=== PATIENT | female | born 1960 | race Caucasian/White ===

== ENCOUNTER 2019-08-29 12:54 | Emergency (ER) | payer BC, MEDICARE ==
[~2019-08-29] VITALS: Ht 167.6 cm; Wt 77.1 kg
--- OUTSIDE RECORDS SUMMARY | 2019-08-29 13:18 | XMS REPORT ---
[facility] Address Unknown Phone Unavailable Care Team Providers Care Support Associate Name Role Phone Unavailable Unavailable Payers Payer Name Policy Type Policy Number Effective Date Expiration Date Problems This patient has no known problems. Allergies, Adverse Reactions, Alerts Allergy Name Allergy Type Status Severity Reaction(s) Onset Date Inactive Date Treating Clinician Comments codeine DA Active DC 2018-07-12 00:00:00 hydromorphone DA Active DC 2018-07-12 00:00:00 Sulfa (Sulfonamide Antibiotics) DA Active DC 2018-07-12 00:00:00 vancomycin DA Active DC 2018-07-12 00:00:00 morphine DA Active [place] 2016-04-14 00:00:00 codeine DA Active [place] 2016-04-14 00:00:00 acetaminophen DA Active [place] 2016-04-14 00:00:00 sulfamethoxazole DA Active [place] 2016-04-14 00:00:00 hydromorphone DA Active 2016-04-14 00:00:00 ACETAMMINOPHEN/CODEINE DA Active U 2007-03-01 00:00:00 CODEINE DA Active U 2007-03-01 00:00:00 No Known Contrast Allergies DA Active U 2007-03-01 00:00:00 No Known Food Allergies DA Active U 2007-03-01 00:00:00 No Known Other Allergies DA Active U 2007-03-01 00:00:00 SULFA DRUGS DA Active U 2007-03-01 00:00:00 Medications This patient has no known medications. Encounters Start Date/Time End Date/Time Encounter Type Admission Type Attending Clinicians Care Facility Care Department Encounter ID 2019-03-01 10:11:45 Outpatient [facility] [id number] 2019-01-03 16:21:45 Outpatient [facility] [id number] 2019-08-13 05:26:00 2019-08-13 05:26:00 Outpatient [facility] [id number] 2019-02-08 08:20:00 2019-02-08 08:20:00 Outpatient [facility] [id number] 2019-01-30 19:06:00 2019-01-30 19:06:00 Emergency E [facility] [id number] 2019-01-01 11:49:00 2019-01-01 11:49:00 Outpatient [facility] [id number] Results Test Description Test Time Test Comments Text Results Atomic Results Result Comments URINALYSIS COMPLETE 2019-03-17 14:37:00 UA COLOR (test code=COLU) DARK YELLOW YELLOW UA APPEARANCE (test code=APPU) SLIGHTLY HAZY CLEAR UA GLUCOSE DIPSTICK (test code=DGLUU) norm mg/dL NEGATIVE UA BILIRUBIN DIPSTICK (test code=BILU) NEGATIVE mg/dL NEGATIVE UA KETONE DIPSTICK (test code=KETU) neg mg/dL NEGATIVE UA SPECIFIC GRAVITY (test code=SGU) 1.005 1.001-1.035 UA BLOOD DIPSTICK (test code=PETRA) 10 (Trace) Thierry/uL NEGATIVE UA PH DIPSTICK (test code=AZAR) 6.5 5.0-8.0 UA PROTEIN DIPSTICK (test code=PROU) 30 (1+) mg/dL Neg-15 UA UROBILINIOGEN DIPSTICK (test code=URO) 1 mg/dL 0.0-0.2 UA NITRITE DIPSTICK (test code=DALLAS) NEGATIVE NEGATIVE UA LEUKOCYTE ESTERASE DIPSTICK (test code=LEUU) 25 Evans/uL (Trace) uL NEGATIVE UA WBC (test code=WBCU) 0-5 per HPF 0-5 UA RBC (test code=RBCU) 0-2 per HPF 0-5 UA EPITHELIAL CELLS (test code=EPIU) Rare (0-1/hpf) per HPF Few UA BACTERIA (test code=BACU) FEW per HPF NONE Urine Source? Clean CatchURINALYSIS [id number] 14:32:00* Test Item Value Reference Range Comments UA COLOR (test code=COLU) DARK YELLOW YELLOW UA APPEARANCE (test code=APPU) SLIGHTLY HAZY CLEAR UA GLUCOSE DIPSTICK (test code=DGLUU) norm mg/dL NEGATIVE UA BILIRUBIN DIPSTICK (test code=BILU) NEGATIVE mg/dL NEGATIVE UA KETONE DIPSTICK (test code=KETU) neg mg/dL NEGATIVE UA SPECIFIC GRAVITY (test code=SGU) 1.005 1.001-1.035 UA BLOOD DIPSTICK (test code=PETRA) 10 (Trace) Thierry/uL NEGATIVE UA PH DIPSTICK (test code=AZAR) 6.5 5.0-8.0 UA PROTEIN DIPSTICK (test code=PROU) 30 (1+) mg/dL Neg-15 UA UROBILINIOGEN DIPSTICK (test code=URO) 1 mg/dL 0.0-0.2 UA NITRITE DIPSTICK (test code=DALLAS) NEGATIVE NEGATIVE UA LEUKOCYTE ESTERASE DIPSTICK (test code=LEUU) 25 Evans/uL (Trace) uL NEGATIVE UA WBC (test code=WBCU) per HPF 0-5 UA RBC (test code=RBCU) per HPF 0-5 UA EPITHELIAL CELLS (test code=EPIU) per HPF Few UA BACTERIA (test code=BACU) per HPF NONE Urine Source? Clean Catch- CT ABD PELVIS [id number] 13:49:00 Name: KESHAV MUSTAFA [facility] : 1960 Age/S: 58 / F [address] [facility] Unit #: [id number] Loc: [place], [place] [address] Phys: Abram Herrera MD Acct: [id number] Di s Date: Status: REG ER PHONE #: Exam Date: 03/17/2019 1882 FAX #: [phone] Reason: RIGHT GROIN PAIN RADIATING TO RIGHT THIGH EXAMS: CPT CODE: [id number] CT ABD PELVIS W/CONT 00955 HISTORY: RIGHT GROIN PA IN RADIATING TO RIGHT THIGH TECHNIQUE: Immediate and delayed [address] images were obtained through the abdomen and pelvis after IV adm inistration of 100 mL of Isovue-370 contrast. Sagittal and coronal reforma tted images were generated. Automated exposure control for dose reduction. COMPARISON: 07/13/15 FINDINGS: Lung bases are clear. Normal heart size. Coronary artery calcification. Calcified granulomas of the liver and spleen. Gallbladder, pancreas, adrenal glands, and kidneys are unremarkable. Limited evaluation the GI tract without oral contrast. Stomach, small bowel, appendix are un remarkable. Mild distal colon diverticulosis. No free air or free fluid. No lymphadenopathy. Aortoiliac atherosclerotic vascular calcificati on without aneurysm. Urinary bladder is unremarkable. Hysterectomy . Pelvic phleboliths. No pelvic free fluid. Upper lumbar dex troscoliosis and lower lumbar levoscoliosis. L4-L5 posterolateral instrume nted fusion with posterior decompression. Degenerative changes of the spin e, sacroiliac joints, and hips. IMPRESSION: No acute intra-abdominal process. Electro nically Signed by Kristy Carrasquillo D.O. on 03/17/2019 at 9903 R eported and signed by: Kristy Carrasquillo D.O. PAGE 1 Sig arminda Report (CONTINUED) Name: KESHAV MUSTAFA [facility] : 1960 Age/S: 58 / F 58 [address] [facility] Unit #: [id number] Loc: [place] [address] Phys: Marquis Herrera MD Acct: [id number] Dis Date: Status: REG ER PHONE #: [phone] Exam Date: 03/17/2019 1336 FAX #: [phone] Reason: RIGHT GROIN PAIN RADI ATING TO RIGHT THIGH EXAMS: CPT CODE: [id number] CT ABD PELVIS W/CONT 93476 <Continued> CC: Jeff Nguyen MD; Marquis Herrera MD Technologist:[place]ore [place] CTDI: DLP: Trnscb Date/Time: 03/17/2019 (9510) [email or web address] Orig Print D/T: S: 03/17/2019 (0513) PAGE 2 Signed Report PROTHROMBIN [id number] 13:41:00* Test Item Value Reference Range Comments PROTHROMBIN TIME PATIENT (test code=PTP) 10.3 seconds 9.0-13.0 INTERNATIONAL NORMAL RATIO (test code=INR) 1.0 0.8-1.2 The therapeutic range for oral anticoagulant therapy formost indications is an international normalized ratio (INR)of between 2.0 and 3.0. The recommended therapeutic INRrange for various clinical situations is listed below: Clinical Situation INR range Pulmonary e mbolism treatment (2.0-3.0)Venous thrombosis treatmentVenous thrombosis prophylaxis (high risk surgery)Prevention of systemic embolism from: Acute myocardial infarction Valvular heart disease Atrial fibrillation Mechanical prosthetic heart valves (2.5-3.5) IS PATIENT ON ANTICOAGULANTS? NTHROMBOPLASTIN TIME [id number] 13:41:00* Test Item Value Reference Range Comments THROMBOPLASTIN TIME PARTIAL (test code=PTT) 25.2 seconds 25.5-34.3 Therapeutic Range for patients on Heparin Therapy is 2 to2.5 times their baseline PTT level. IS PATIENT ON ANTICOAGULANTS? NBASIC METABOLIC [id number] 12:34:00* Test Item Value Reference Range Comments SODIUM (test code=NA) 133 mmol/L 136-145 POTASSIUM (test code=K) 4.0 mmol/L 3.5-5.1 CHLORIDE (test code=CL) 97 mmol/L 101-109 CARBON DIOXIDE (test code=CO2) 29.2 mmol/L 21-32 ANION GAP (test code=GAP) 11 mmol/L 10-20 GLUCOSE (test code=GLU) 106 mg/dL 74-106 BLOOD UREA NITROGEN (test code=BUN) 9 mg/dL 3-21 GLOMERULAR FILTRATION RATE (test code=GFR) > 60 mL/min >=60 Estimated GFR by using Modified MDRD formula.Chronic kidney disease is defined as either kidney damageor GFR <60 mL/min/1.73 m2 for >3 months. CREATININE (test code=CREAT) 0.70 mg/dL 0.55-1.3 BUN/CREATININE RATIO (test code=BUN/CREA) 12.9 10-20 CALCIUM (test code=CA) 8.6 mg/dL 8.4-10.2 HEPATIC FUNCTION [id number] 12:34:00* Test Item Value Reference Range Comments TOTAL PROTEIN (test code=PROT) 6.9 g/dL 6.5-8.4 ALBUMIN (test code=ALB) 3.6 g/dL 3.4-4.8 GLOBULIN (test code=GLOB) 3.3 G/DL 1-10 ALBUMIN/GLOBULIN RATIO (test code=A/G) 1.09 RATIO 0.75-1.50 BILIRUBIN TOTAL (test code=BILT) 0.70 mg/dL 0.0-1.0 BILIRUBIN DIRECT (test code=BILD) 0.10 mg/dL 0.0-0.30 SGOT/AST (test code=AST) 14 U/L 6-32 SGPT/ALT (test code=ALT) 18 U/L 12-78 Note: Change in REFERENCE RANGE due to new reagent method. ALKALINE PHOSPHATASE TOTAL (test code=ALKP) 105 U/L 38-126 [id number] 12:34:00* Test Item Value Reference Range Comments TROPONIN-I (test code=TROPI) <0.015 ng/mL 0.00-0.056 [id number] 12:29:00* Test Item Value Reference Range Comments D-DIMER (test code=DDIMER) < 100 ng/ml < 600 CBC W/O [id number] 12:11:00* Test Item Value Reference Range Comments WHITE BLOOD CELL (test code=WBC) 7.5 K/mm3 4.5-12.5 RED BLOOD CELL (test code=RBC) 4.47 mill/mm3 3.7-5.2 HEMOGLOBIN (test code=HGB) 14.4 gram/dL 11.5-15.5 HEMATOCRIT (test code=HCT) 41.3 % 36.0-46.0 MEAN CELL VOLUME (test code=MCV) 92.4 fL 80-98 MEAN CELL HGB (test code=MCH) 32.2 picogram 27.0-33.0 MEAN CELL HGB CONCETRATION (test code=MCHC) 34.9 gram/dL 33.0-36.0 RED CELL DISTRIBUTION WIDTH (test code=RDW) 13.6 % 11.6-16.2 RED CELL DISTRIBUTION WIDTH SD (test code=RDW-SD) 47.0 fL 37.0-51.0 PLATELET COUNT (test code=PLT) 145 K/mm3 150-450 MEAN PLATELET VOLUME (test code=MPV) 10.2 fL 6.7-11.0 - XR HIP W/PEL UNI 2+V [id number] 11:19:00 Name: KESHAV MUSTAFA [facility] : 1960 Age/S:58 /F [address] [facility] Unit#:[id number] Loc: [place] [address] Phys: Marquis Herrera MD Dis Date: PHONE #: [phone] Status: REG ER FAX #: [phone] Exam Date: 03/17/2019 Reason: RIGHT HIP PAIN EXAMS: CPT CODE: [id number] XR HIP W/PEL UNI 2+[place] [id number] EXAM: Pelvis, one view and right hip, 2 views; INFORMATION: Right hip pain and right leg swelling; FINDINGS: The pelvis and both hips are intact; no evidence of fracture or dislocation. There is mild narrowing of the joint space of both hips. Periarticular soft tissues are unremarkable. Status post posterior fusion of the lower lumbar spine. IMPRESSION: 1. No evidence of acute osseous trauma. 2. 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 at 1119 Reported and signed by: Peter Graff M.D. CC: Jeff Nguyen MD; Marquis Herrera MD Technologist: [place] Trnscrpt Data: 03/17/2019 (1119) Cinthia Orig Print D/T: S: 03/17/2019 (1129) PAGE 1 Signed Report LACTIC [id number] 14:57:00* Test Item Value Reference Range Comments LACTIC ACID (test code=LACT) 1.2 MMOL/L 0.4-1.9 COMPREHENSIVE METABOLIC [id number] 14:50:00* Test Item Value Reference Range Comments SODIUM (test code=NA) 134 mmol/L 135-148 POTASSIUM (test code=K) 3.2 mmol/L 3.5-5.1 CHLORIDE (test code=CL) 96 mmol/L 101-109 CARBON DIOXIDE (test code=CO2) 26.8 mmol/L 21-32 ANION GAP (test code=GAP) 14 mmol/L 10-20 GLUCOSE (test code=GLU) 97 mg/dL 74-106 BLOOD UREA NITROGEN (test code=BUN) 9 mg/dL 3-21 CREATININE (test code=CREAT) 0.71 mg/dL 0.55-1.3 BUN/CREATININE RATIO (test code=BUN/CREA) 12.7 10-20 TOTAL PROTEIN (test code=PROT) 6.6 g/dL 6.5-8.4 ALBUMIN (test code=ALB) 3.4 g/dL 3.4-4.8 GLOBULIN (test code=GLOB) 3.2 G/DL 1-10 ALBUMIN/GLOBULIN RATIO (test code=A/G) 1.1 RATIO 0.75-1.50 CALCIUM (test code=CA) 8.7 mg/dL 8.4-10.2 BILIRUBIN TOTAL (test code=BILT) 0.60 mg/dL 0.0-1.0 SGOT/AST (test code=AST) 31 U/L 6-32 SGPT/ALT (test code=ALT) 29 U/L 12-78 Note: Change in REFERENCE RANGE due to new reagent method. ALKALINE PHOSPHATASE TOTAL (test code=ALKP) 105 U/L 38-126 [id number] 14:50:00* Test Item Value Reference Range Comments LIPASE (test code=LIP) 128 U/L 128-270 URINALYSIS [id number] 14:45:00* Test Item Value Reference Range Comments UA COLOR (test code=COLU) LIGHT YELLOW YELLOW UA APPEARANCE (test code=APPU) CLEAR CLEAR UA GLUCOSE DIPSTICK (test code=DGLUU) NORMAL mg/dL NEGATIVE UA BILIRUBIN DIPSTICK (test code=BILU) NEGATIVE mg/dL NEGATIVE UA KETONE DIPSTICK (test code=KETU) 5 (Trace) mg/dL NEGATIVE UA SPECIFIC GRAVITY (test code=SGU) 1.010 1.001-1.035 UA BLOOD DIPSTICK (test code=PETRA) neg Thierry/uL NEGATIVE UA PH DIPSTICK (test code=AZAR) 7.0 5.0-8.0 UA PROTEIN DIPSTICK (test code=PROU) 30 (1+) mg/dL Neg-15 UA UROBILINIOGEN DIPSTICK (test code=URO) 4 mg/dL (2+) mg/dL 0.0-0.2 UA NITRITE DIPSTICK (test code=DALLAS) NEGATIVE NEGATIVE UA LEUKOCYTE ESTERASE DIPSTICK (test code=LEUU) 500/uL (3+) uL NEGATIVE UA WBC (test code=WBCU) 3-5 per HPF 0-5 IN SOME URINARY TRACT INFECTIONS THERE MAY NOT BE ENOUGHWBCs IN THE URINE TO TRIGGER AN AUTOMATIC (REFLEX) URINECULTURE. A SEPERATE ORDER FOR URINE CULTURE IS RECOMMENDEDIF THERE IS STRONG SUPPORT FOR A URINARY TRACT INFECTIONCLINICALLY. UA RBC (test code=RBCU) NONE SEEN per HPF 0-5 UA EPITHELIAL CELLS (test code=EPIU) Rare (0-1/hpf) per HPF Few UA BACTERIA (test code=BACU) TRACE per HPF NONE UA MUCUS (test code=MUCU) FEW per LPF NONE-FEW Urine Source? Clean CatchCOMPREHENSIVE METABOLIC [id number] 14:45:00* Test Item Value Reference Range Comments SODIUM (test code=NA) 134 mmol/L 135-148 POTASSIUM (test code=K) 3.2 mmol/L 3.5-5.1 CHLORIDE (test code=CL) 96 mmol/L 101-109 CARBON DIOXIDE (test code=CO2) 26.8 mmol/L 21-32 ANION GAP (test code=GAP) 14 mmol/L 10-20 GLUCOSE (test code=GLU) 97 mg/dL 74-106 BLOOD UREA NITROGEN (test code=BUN) 9 mg/dL 3-21 CREATININE (test code=CREAT) 0.71 mg/dL 0.55-1.3 BUN/CREATININE RATIO (test code=BUN/CREA) 12.7 10-20 TOTAL PROTEIN (test code=PROT) gram/dL 6.4-8.2 ALBUMIN (test code=ALB) g/dL 3.4-5.0 GLOBULIN (test code=GLOB) g/dL 2.7-4.2 ALBUMIN/GLOBULIN RATIO (test code=A/G) 0.75-1.50 CALCIUM (test code=CA) 8.7 mg/dL 8.4-10.2 BILIRUBIN TOTAL (test code=BILT) mg/dL 0.2-1.2 SGOT/AST (test code=AST) IUnit/L 15-37 SGPT/ALT (test code=ALT) U/L 10-69 ALKALINE PHOSPHATASE TOTAL (test code=ALKP) IUnit/L 45-117 [id number] 14:45:00* Test Item Value Reference Range Comments LIPASE (test code=LIP) Unit/L 144-286 URINALYSIS [id number] 14:43:00* Test Item Value Reference Range Comments UA COLOR (test code=COLU) LIGHT YELLOW YELLOW UA APPEARANCE (test code=APPU) CLEAR CLEAR UA GLUCOSE DIPSTICK (test code=DGLUU) NORMAL mg/dL NEGATIVE UA BILIRUBIN DIPSTICK (test code=BILU) NEGATIVE mg/dL NEGATIVE UA KETONE DIPSTICK (test code=KETU) 5 (Trace) mg/dL NEGATIVE UA SPECIFIC GRAVITY (test code=SGU) 1.010 1.001-1.035 UA BLOOD DIPSTICK (test code=PETRA) neg Thierry/uL NEGATIVE UA PH DIPSTICK (test code=AZAR) 7.0 5.0-8.0 UA PROTEIN DIPSTICK (test code=PROU) 30 (1+) mg/dL Neg-15 UA UROBILINIOGEN DIPSTICK (test code=URO) 4 mg/dL (2+) mg/dL 0.0-0.2 UA NITRITE DIPSTICK (test code=DALLAS) NEGATIVE NEGATIVE UA LEUKOCYTE ESTERASE DIPSTICK (test code=LEUU) 500/uL (3+) uL NEGATIVE UA WBC (test code=WBCU) per HPF 0-5 Urine Source? Clean Catch- XR CHEST 2 [id number] 14:33:00 Name: KESHAV MUSTAFA [facility] : 1960 Age/S:58 /F [address] [facility] Unit#:[id number] Loc: [place] [address] Phys: Chetan Hanna Ma, MD Dis Date: PHONE #: [phone] Status: REG ER FAX #: [phone] Exam Date: 09/03/2018 Re ason: COUGH/FEVER EXAMS: CPT CODE: [id number] XR CHEST 2 V [id number] REASON FOR EXAM: COUGH/FEVER Exam Order Date: 09/03/2018 1:28 PM Ordering M.Gabriel: Chetan Hanna MD PROCEDURE: - XR CHEST 2 V DELLA RISON: 11/24/2017 FINDINGS: PA and lateral views of the chest show clear lungs. No evidence of consolidation. No evidence of effusion. The he art size is within normal limits. Pulmonary vasculatures are unremarkable. The osseous structures are grossly intact. IMPRESSION: Hy perinflated lungs suggestive of COPD. at 1433 Reported and signed by: Lizzy Rosario M.D. CC: Chetan Hanna MD Technologist: [place] Trnscrpt Data: 09/03/2018 (1502) [id number] Orig Print D/T: S: 09/03/2018 (9083) PAGE 1 Signed Report CBC W/AUTO [id number] 14:32:00* Test Item Value Reference Range Comments WHITE BLOOD CELL (test code=WBC) 6.0 K/mm3 4.5-12.5 RED BLOOD CELL (test code=RBC) 4.38 mill/mm3 3.7-5.2 HEMOGLOBIN (test code=HGB) 14.0 gram/dL 11.5-15.5 HEMATOCRIT (test code=HCT) 38.7 % 36.0-46.0 MEAN CELL VOLUME (test code=MCV) 88.4 fL 80-98 MEAN CELL HGB (test code=MCH) 32.0 picogram 27.0-33.0 MEAN CELL HGB CONCETRATION (test code=MCHC) 36.2 gram/dL 33.0-36.0 RED CELL DISTRIBUTION WIDTH (test code=RDW) 13.4 % 11.6-16.2 RED CELL DISTRIBUTION WIDTH SD (test code=RDW-SD) 42.3 fL 39.1-52.0 PLATELET COUNT (test code=PLT) 224 K/mm3 150-450 MEAN PLATELET VOLUME (test code=MPV) 9.4 fL 6.7-11.0 NEUTROPHIL % (test code=NT%) 58.6 % 39.0-69.0 LYMPHOCYTE % (test code=LY%) 32.0 % 25.0-55.0 MONOCYTE % (test code=MO%) 9.1 % 0.0-10.0 EOSINOPHIL % (test code=EO%) 0.0 % 0.0-5.0 BASOPHIL % (test code=BA%) 0.3 % 0.0-1.0 NEUTROPHIL # (test code=NT#) 3.54 K/mm3 1.8-7.7 LYMPHOCYTE # (test code=LY#) 1.93 K/mm3 1.0-5.0 MONOCYTE # (test code=MO#) 0.55 K/mm3 0-0.8 EOSINOPHIL # (test code=EO#) 0.00 K/mm3 0.0-0.5 BASOPHIL # (test code=BA#) 0.02 K/mm3 0.0-0.2 MANUAL DIFF REQUIRED (test code=MDIFF) NO CBC W/AUTO [id number] 14:32:00* Test Item Value Reference Range Comments WHITE BLOOD CELL (test code=WBC) TEST NOT PERFORMED K/mm3 4.5-12.5 MANUAL DIFF REQUIRED (test code=MDIFF) NO CBC W/AUTO [id number] 13:55:00* Test Item Value Reference Range Comments WHITE BLOOD CELL (test code=WBC) TEST NOT PERFORMED K/mm3 4.5-12.5 LACTIC [id number] 13:54:00* Test Item Value Reference Range Comments LACTIC ACID (test code=LACT) TEST NOT PERFORMED mmol/L 0.4-1.9 COMPREHENSIVE METABOLIC [id number] 13:54:00* Test Item Value Reference Range Comments SODIUM (test code=NA) TEST NOT PERFORMED mmol/L 135-148
--- OUTSIDE RECORDS SUMMARY | 2019-08-29 13:18 | XMS REPORT | Encounter Summary ---
Author Organization Unknown Address [address] [place] [address] Phone [phone] Care Team Providers Care [place] Name Role Phone Dr. Jeff Salazar 3 [phone] Amira Kebede MD 82 [phone] Jabier Cervantes MD 129 [phone] Reason for Visit shortness of breath; Annual Alcohol Misuse Screening; depression; Tobacco Cessation Counseling; fever; cough Instructions 1. Acute exacerbation of chronic obstructive airways disease albuterol sulfate 2.5 mg/3 mL (0.083 %) solution for nebulization Augmentin 875 mg-125 mg tablet prednisone 50 mg tablet fluticasone propionate 50 mcg/actuation nasal spray,suspension 2. Hypertensive disorder CBC w/ auto diff 3. Hyperlipidemia high cholesterol: care instructions CMP, serum or plasma lipid panel, serum TSH, serum or plasma 4. Neoplasm of brain 5. Seizure 6. Chronic back pain 7. Anxiety 8. Recurrent urinary tract infection urinalysis, dipstick 9. Body mass index 25-29 - overweight learning about healthy weight 10. Nicotine dependence stopping smoking: care instructions advised to quit smoking deciding about using medicines to quit smoking 11. Alcohol consumption screening learning about alcohol misuse 12. Screening for malignant neoplasm of colon fecal occult blood, stool 13. Screening mammography mammogram: about this test 14. Hepatitis C screening hepatitis C virus RNA, quant, PCR, serum or plasma Discussion Note: None recorded. Plan of Care Reminders Provider Appointments Return to Office on or around 02/27/2019 Jeff Vallejo MD Lab Fecal Occult Blood, Stool 11/26/2018 [facility] Urinalysis, Dipstick 11/26/2018 [facility] [place] CMP, Serum or Plasma 11/26/2018 [facility] Lipid Panel, Serum 11/26/2018 [facility] TSH, Serum or Plasma 11/26/2018 [facility] CBC W/ Auto Diff 11/26/2018 [facility] Hepatitis C Virus RNA, Quant, PCR, Serum or Plasma 11/26/2018 [facility] Referral None recorded. Procedures None recorded. Surgeries None recorded. Imaging None recorded. Medications Name Start Date albuterol sulfate 2.5 mg/3 mL (0.083 %) solution for nebulization Inhale 3 mL every 4-6 hours by nebulization route as needed for 30 days. amlodipine 5 mg tablet Take 1 tablet every day by oral route for 90 days. atorvastatin 40 mg tablet Take 1 tablet every day by oral route. Augmentin 875 mg-125 mg tablet Take 1 tablet every 12 hours by oral route as directed for 10 days. fluticasone propionate 50 mcg/actuation nasal spray,suspension [place] 1 spray twice a day by intranasal route as directed for 14 days. hydrocodone 10 mg-acetaminophen 325 mg tablet Take 0.5 tablets every day by oral route as needed for 15 days. Keppra 1,000 mg tablet Take 1.5 tablets twice a day by oral route. metoprolol tartrate 25 mg tablet Take 1 tablet twice a day by oral route for 90 days. omeprazole 20 mg capsule,delayed release Take 1 capsule every day by oral route for 30 days. ondansetron HCl 8 mg tablet PRN prednisone 50 mg tablet Take 1 tablet every day by oral route as directed for 5 days. tramadol 50 mg tablet PRN trazodone 100 mg tablet Take 1 tablet every day by oral route for 60 days. Trileptal 600 mg tablet Take 1 tablet twice a day by oral route. Xanax 1 mg tablet Take 1 tablet every day by oral route as needed. Medications Administered None recorded. Vitals Height Weight BMI Blood Pressure 5 ft 5 in 165 lbs 27.5 kg/m2 (1) 154/78 mm[Hg] (2) 142/84 mm[Hg] Lab Results Date Name Specimen Result Interpretation Description Value Range Status Address Urinalysis, Dipstick Color Color yellow [facility] [place]: [address] [place] [address] St., [place] Color Appearance clear [facility] [place]: [address] [place] Color Glucose negative [facility] [place]: [address] [place] Color Bilirubin negative [facility] [place]: [address] [place] Color Ketones negative [facility] [place]: [address] [place] Color Specific Sunset 1.015 [facility] Joyce: [address] [place] Color Blood negative [facility] [place]: [address] [place] Color PH 5.5 [facility] [place]: [address] [place] Color Protein trace [facility] Joyce: [address] [place] Color Urobilinogen 0.2 [facility] Joyce: [address] [place] Color Nitrites negative [facility] Joyce: [address] [place] Color Leukocytes negative [facility] [place]: [address] [place] Allergies Code Code System Name Reaction Severity Status Onset 480445 RxNorm Dilaudid Hives Active Sulfa (Sulfonamide Antibiotics) Anaphylaxis Active Problems Name Status Onset Date Source Neoplasm of Brain Active 11/26/2018 Hyperlipidemia Active 11/26/2018 Claustrophobia Active 11/26/2018 Insomnia Active 11/26/2018 Hypertensive Disorder Active 11/26/2018 Asthma Active 11/26/2018 Recurrent Urinary Tract Infection Active 11/26/2018 Chronic Back Pain Active 11/26/2018 Seizure Active 11/26/2018 Procedures Date Name Performed by 07/24/2003 Cancer Surgery Information not available 07/24/2003 Neurosurgery (Brain) Information not available 07/24/1993 Other Information not available 07/24/1987 Hysterectomy (Partial) Information not available Cardiac Surgery Information not available Operation on Neck Information not available Procedure on Spine Information not available Vaccine List None recorded. Social History Smoking Status Light Tobacco Smoker (1 PPW) Past Encounters 11/26/2018 Acute Exacerbation of Chronic Obstructive Airways Disease; Hypertensive Disorder; Hyperlipidemia; Neoplasm of Brain; Seizure; Chronic Back Pain; Anxiety; Recurrent Urinary Tract Infection; Body Mass Index 25-29 - Overweight; Nicotine Dependence; Alcohol Consumption Screening; Screening for Malignant Neoplasm of Colon; Screening Mammography; Hepatitis C Screening Jeff Vallejo MD: [address] [facility] [place] [address], Ph. History of Present Illness Note:Coming to establish care. Hx of HLD, HTN, brain CA s/p surgery x4 and recurrent seizures. Hx of daily focal seizures and generalized seizures at least 4 times per week taking alprazolam as needed.<div>Productive cough since 2 weeks ago. Concomitantly, fever TMAX 101, runny nose, sob, wheezing. Denies chest pain.</div> Review of Systems:ROS as noted in the HPI Review of Systems None recorded. Physical Exam General Adult Exam (male) Reported By: Patient Constitutional: General Appearance: healthy-appearing, overweight. Level of Distress: NAD. Ambulation: ambulating normally Psychiatric: Insight: good judgement. Mental Status: active and alert, normal mood, normal affect Eyes: Lids and Conjunctivae: non-injected, no discharge ENMT: Ears: TMs clear. Nose: no sinus tenderness, nares non-patent, nasal discharge, post nasal drip. Lips, Teeth, and Gums: no mouth or lip ulcers. Oropharynx: moist mucous membranes, no exudates, erythema Neck: Neck: supple, trachea midline. Lymph Nodes: cervical LAD. Thyroid: no enlargement, non-tender Lungs: Respiratory effort: no dyspnea. Auscultation: expiratory wheezing, rhonchi Cardiovascular: Heart Auscultation: RRR, normal S1, normal S2, no murmurs. Neck vessels: no carotid bruits Abdomen: Inspection and Palpation: soft, non-distended, no tenderness, no guarding Musculoskeletal:: Motor Strength and Tone: normal, normal tone Neurologic: Gait and Station: normal gait Skin: Inspection and palpation: no rash, no lesions
--- OUTSIDE RECORDS SUMMARY | 2019-08-29 13:18 | XMS REPORT | Encounter Summary ---
Author Organization Unknown Address [address] [place] [address] Phone [phone] Care Team Providers Care [employer] Name Role Phone Dr. Jeff Salazar 3 [phone] Amira Kebede MD 82 [phone] Jabier Cervantes MD 129 [phone] Reason for Visit Hyperlipidemia; Hypertensive disorder; Chronic back pain; Insomnia Instructions 1. Lumbago with sciatica Medrol (Sergo) 4 mg tablets in a dose pack tizanidine 2 mg tablet 2. Hypertensive disorder metoprolol tartrate 25 mg tablet CMP, serum or plasma CBC w/ auto diff amlodipine 10 mg tablet electrocardiogram 3. Hyperlipidemia atorvastatin 40 mg tablet high cholesterol: care instructions lipid panel, serum 4. Gastroesophageal reflux disease omeprazole 20 mg capsule,delayed release 5. Body mass index 25-29 - overweight learning about healthy weight 6. Tachycardia Discussion Note: None recorded. Plan of Care Reminders Provider Appointments Est Patient 05/03/2019 10:00AM Jeff Vallejo MD Lab Lipid Panel, Serum 04/05/2019 [facility] CMP, Serum or Plasma 04/05/2019 [facility] CBC W/ Auto Diff 04/05/2019 [facility] Referral None recorded. Procedures None recorded. Surgeries None recorded. Imaging Electrocardiogram 04/05/2019 [facility] Medications Name Start Date albuterol sulfate 2.5 mg/3 mL (0.083 %) solution for nebulization Inhale 3 mL every 4-6 hours by nebulization route as needed for 30 days. alprazolam 1 mg tablet Take 1 tablet every day by oral route as needed. amlodipine 10 mg tablet Take 1 tablet every day by oral route. amlodipine 5 mg tablet Take 1 tablet every day by oral route for 90 days. atorvastatin 40 mg tablet Take 1 tablet every day by oral route for 90 days. fluticasone propionate 50 mcg/actuation nasal spray,suspension [place] 1 spray twice a day by intranasal route as directed for 14 days. hydrocodone 10 mg-acetaminophen 325 mg tablet Take 0.5 tablets every day by oral route as needed for 15 days. levetiracetam 1,000 mg tablet Take 1.5 tablets twice a day by oral route. Medrol (Sergo) 4 mg tablets in a dose pack Take 1 dose pk by oral route as directed. metoprolol tartrate 25 mg tablet Take 1 tablet twice a day by oral route for 90 days. omeprazole 20 mg capsule,delayed release Take 1 capsule every day by oral route for 90 days. ondansetron HCl 8 mg tablet PRN oxcarbazepine 600 mg tablet Take 1 tablet twice a day by oral route. tizanidine 2 mg tablet Take 1 tablet as needed by oral route at bedtime for 14 days. tramadol 50 mg tablet PRN trazodone 100 mg tablet Take 1 tablet every day by oral route for 60 days. Medications Administered None recorded. Vitals Height Weight BMI Blood Pressure 5 ft 5 in 164.6 lbs 27.4 kg/m2 (1) 150/104 mm[Hg] (2) 145/109 mm[Hg] Lab Results None recorded. Allergies Code Code System Name Reaction Severity Status Onset 967654 RxNorm Dilaudid Hives Active Sulfa (Sulfonamide Antibiotics) [...] available Procedure on Spine Information not available 04/05/2019 Electrocardiogram [facility] [id number] [place] [address] (Work Place) Vaccine List None recorded. Social History Tobacco Smoking Status Light Tobacco Smoker (1 PPW) Past Encounters 04/05/2019 Lumbago with Sciatica; Hypertensive Disorder; Hyperlipidemia; Gastroesophageal Reflux Disease; Body Mass Index 25-29 - Overweight; Tachycardia Jeff Vallejo MD: [address] [place] [address], Ph. History of Present Illness Note:Pt presents with complaints of low back pain that radiates to the right hip, to the right buttock and wraps around to the groin down her inner right leg. Pt denies any numbness or tingling in the legs. Review of Systems Comprehensive General Adult ROS Reported By: Patient Constitutional: Constitutional: no fever Eyes: Eyes: no vision change Cardiovascular: Cardiovascular: no chest pain Respiratory: Respiratory: no cough, no wheezing, no shortness of breath Gastrointestinal: Gastrointestinal: no abdominal pain Neurologic: Neurologic: no loss of consciousness, no headaches Physical Exam General Adult Exam (male), Neurology Exam Reported By: Patient Constitutional: General Appearance: overweight. Level of Distress: NAD. Ambulation: limited ambulation, ambulation with cane Psychiatric: Insight: poor insight. Mental Status: active and alert, anxious Eyes: Lids and Conjunctivae: non-injected, no discharge Lungs: Respiratory effort: no dyspnea. Auscultation: breath sounds normal Cardiovascular: Heart Auscultation: RRR, normal S1, normal S2, no murmurs. Neck vessels: no carotid bruits Abdomen: Inspection and Palpation: soft, non-distended, no tenderness, no guarding Musculoskeletal:: Motor Strength and Tone: normal, normal tone Skin: Inspection and palpation: no rash, no lesions Cranial Nerves: CN VII Right: abnormal facial expression. CN VII Left: abnormal facial expression Spine: Low Back: right paraspinal spasms; tenderness with palpation in the R side of the lumbar area. Decreased ROM because of the pain. Positive straight leg raising test in the R side
[2019-08-29] MEDS ORDERED: IOPAMIDOL 370 MG/ML 200 ML INFUS..BTL INJ ONE (14:06)
[2019-08-29] MEDS ORDERED: POTASSIUM CHLORIDE 20 MEQ TAB CR PO ONE ×2 (15:20→18:51)
[2019-08-29] MEDS ORDERED: SODIUM CHLORIDE 0.9% 1000ML 1,000 ML ONE (15:24)
--- NOTE | 2019-08-29 16:45 | Diagnostic Imaging Report ---
EXAM: CT Chest WITHOUT intravenous contrast 08/29/2019 12:00 AM INDICATION: Cough, shortness of breath COMPARISON: None TECHNIQUE: Chest was scanned utilizing a multidetector helical scanner from the lung apex through the level of the adrenal glands without administration of IV contrast. Coronal and sagittal reformations were obtained. Routine protocol was performed. IV CONTRAST: None RADIATION DOSE: Total DLP: 424.9 mGy*cm. Dose modulation, iterative reconstruction, and/or weight based adjustment of the mA/kV was utilized to reduce the radiation dose to as low as reasonably achievable. COMPLICATIONS: None FINDINGS: LINES/ TUBES: None. LUNGS AND AIRWAYS: The central airways are patent. Mild diffuse bronchial wall thickening. No focal consolidation or pulmonary edema. Mild bilateral upper lobe predominant centrilobular emphysema. No suspicious pulmonary nodules. PLEURA: The pleural spaces are clear. HEART AND MEDIASTINUM: The thyroid gland is normal. No mediastinal, hilar or axillary lymphadenopathy. The heart is normal in size.. There is no pericardial effusion. Scattered atherosclerotic calcifications of the aorta, coronary arteries, and proximal great vessels. UPPER ABDOMEN: Scattered calcified granulomas in the liver and spleen. No acute findings. BONES: The visualized bony thorax is within normal limits. SOFT TISSUES: Unremarkable. IMPRESSION: No focal pneumonia or pulmonary edema. Mild bilateral upper lobe predominant centrilobular emphysema. Mild diffuse bronchial wall thickening can be seen in the setting of bronchitis. Signed by: Emilia Cronin MD on 08/29/2019 4:43 PM
[2019-08-29] MEDS ORDERED: METHYLPREDNISOLONE SOD SUCC 125 MG/2ML VIAL IV ONE (17:30)
[2019-08-29] MEDS ORDERED: ALBUTEROL/IPRATROPIUM 3 ML NEB NEB ONE (17:30)
[2019-08-29] MEDS ORDERED: POTASSIUM CHLORIDE 20 MEQ TAB CR PO NR (17:30)
[2019-08-29] MEDS ORDERED: ALBUTEROL/IPRATROPIUM 3 ML NEB ONE (17:38)
[2019-08-29] MEDS ORDERED: METHYLPREDNISOLONE SOD SUCC 125 MG/2ML VIAL ONE (17:38)
[2019-08-29] MEDS ORDERED: CEFTRIAXONE SOD 1 GM/NS 50 ML 50 ML IV ONE ×2 (17:45→18:21)
--- NOTE | 2019-08-29 17:50 | NUR ---
Contacted [facility] for transfer of pt. Spoke to Lena, health safety coordinator.
--- NOTE | 2019-08-29 18:25 | NUR ---
Contacted [facility] to transport pt. ETA [id number]
--- NOTE | 2019-08-29 18:52 | NUR ---
Daughter, Ciara [phone]
[2019-08-29 19:21] VITALS: BP 132/66
== END 2019-08-29 20:07 ==
LOC: FSED 12:54
DX: J20.9 Acute bronchitis, unspecified (principal); E87.6 Hypokalemia; J45.909 Unspecified asthma, uncomplicated; R09.02 Hypoxemia; I10 Essential (primary) hypertension; E78.5 Hyperlipidemia, unspecified; F17.200 Nicotine dependence, unspecified, uncomplicated; I25.10 Atherosclerotic heart disease of native coronary artery without angina pectoris; Z95.5 Presence of coronary angioplasty implant and graft; G40.89 Other seizures; C71.9 Malignant neoplasm of brain, unspecified; H91.93 Unspecified hearing loss, bilateral
CPT/HCPCS: 71250; 80053; 81003; 85025; 87400; 93005; 96374; 99284; J0696; J2930; J7030; Q9967